=== PATIENT | female | born 1935 | race Caucasian/White ===

== ENCOUNTER 2017-11-12 22:54 | Inpatient (IN) | payer MEDICARE ==
[2017-11-12] MEDS ORDERED: fentaNYL (PF) 50 MCG/ML 2 ML AMP IV STA (23:12)
[2017-11-12 23:59] LABS: Basophils % (A) 0 %; Eosinophils % (A) 0 %; HCT 35.4 % (34.0-46.0); HGB 11.6 gm/dL (11.4-16.0); Lymphocytes # (A) 0.6 k/uL (1.0-4.8); Lymphocytes % (A) 5 %; MCH 29.7 pg (25.0-35.0); MCHC 32.8 g/dL (31.0-37.0); MCV 90.4 fL (80.0-100.0); Mean Platelet Volume 7.2; Monocytes # (A) 0.9 k/uL (0-1.0); Monocytes % (A) 8 %; Neutrophils # (A) 9.6 k/uL (1.3-7.7); Neutrophils % (A) 86 %; Platelet Count 265 k/uL (150-450); RBC 3.92 m/uL (3.80-5.40); RDW 13.7 % (11.5-15.5); WBC 11.2 k/uL (3.8-10.6)
--- NOTE | 2017-11-13 00:07 | XR ---
EXAMINATION TYPE: XR femur RT DATE OF EXAM: 11/12/2017 COMPARISON: NONE HISTORY: Fell tonight. Pain. TECHNIQUE: 4 views FINDINGS: There is intertrochanteric fracture right femur with mild coxa vera deformity. There is no dislocation. 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 IMPRESSION: Acute intertrochanteric fracture right femur.
--- NOTE | 2017-11-13 00:07 | XR ---
EXAMINATION TYPE: XR pelvis AP view DATE OF EXAM: 11/12/2017 COMPARISON: NONE HISTORY: Fell tonight. Pain. TECHNIQUE: Single view FINDINGS: Pelvic ring is intact. Hip joint spaces are normal. Sacroiliac joints are intact. IMPRESSION: No pelvic fracture seen.
--- NOTE | 2017-11-13 00:09 | XR ---
EXAMINATION TYPE: XR chest 1V portable DATE OF EXAM: 11/12/2017 COMPARISON: NONE HISTORY: Fall. Pain. TECHNIQUE: Single frontal view of the chest is obtained. 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 There is no heart failure nor confluent pneumonic infiltra te. Costophrenic angles are clear. IMPRESSION: Atheromatous aorta. No active cardiopulmonary disease.
[2017-11-13 00:12] LABS: ALT 33 U/L (9-52); AST 28 U/L (14-36); Albumin 3.9 g/dL (3.5-5.0); Alkaline Phosphatase 105 U/L (38-126); Anion Gap 13 mmol/L; Blood Urea Nitrogen 13 mg/dL (7-17); Calcium 8.9 mg/dL (8.4-10.2); Carbon Dioxide 24 mmol/L (22-30); Chloride 106 mmol/L (98-107); Glucose 166 mg/dL (74-99); Magnesium 1.8 mg/dL (1.6-2.3); Potassium 4.1 mmol/L (3.5-5.1); Sodium 143 mmol/L (137-145); Total Bilirubin 0.6 mg/dL (0.2-1.3); Total Protein 6.5 g/dL (6.3-8.2)
[2017-11-13 00:29] LABS: Creatine Kinase 217 U/L (30-135)
[2017-11-13 00:42] LABS: Creatine Kinase MB 2.3 ng/mL (0.0-2.4); Troponin I <0.012 ng/mL (0.000-0.034)
--- NOTE | 2017-11-13 00:42 | ED ---
Fall HPI - General Chief Complaint: Fall Stated Complaint: FALL Time Seen by Provider: 11/12/17 23:00 Source: patient, EMS Mode of arrival: EMS - History of Present Illness Initial Comments: This 82-year-old female who is brought in by EMS because of a fall. She states around 2:30 this afternoon she tripped over a hose and fell landing on her right hip. She try to get up but could not get up because of hip pain. She laid there all day until evening was someone prior to calling for help. She was finally brought into the emergency department by EMS. She was given morphine IV push by paramedics with some relief for pain it was 5/5. She denies any other injuries fevers chills nausea vomiting sweats or other symptoms. MD Complaint: fall Review of Systems ROS Statement: Those systems with pertinent positive or pertinent negative responses have been documented in the HPI. ROS Other: All systems not noted in ROS Statement are negative. Past Medical History Past Medical History: No Reported History History of Any Multi-Drug Resistant Organisms: None Reported Past Surgical History: Section, Tonsillectomy Past Psychological History: No Psychological Hx Reported Smoking Status: Current every day smoker Past Alcohol Use History: None Reported Past Drug Use History: None Reported General Exam - General Exam Comments Initial Comments: This is a well-developed well-nourished awake alert oriented 3 female she has a Demetrio Coma Scale of 15 the patient was brought in on a backboard with c- collar this was clinically cleared by me. The collar and board were removed General appearance: alert, anxious, in distress Head exam: Present: atraumatic, normocephalic, normal inspection Eye exam: Present: normal appearance, PERRL, EOMI. Absent: scleral icterus, conjunctival injection, periorbital swelling ENT exam: Present: mucous membranes dry Neck exam: Present: normal inspection. Absent: tenderness, meningismus, lymphadenopathy Respiratory exam: Present: normal lung sounds bilaterally. Absent: respiratory distress, wheezes, rales, rhonchi, stridor Cardiovascular Exam: Present: regular rate, normal rhythm, normal heart sounds. Absent: systolic murmur, diastolic murmur, rubs, gallop, clicks GI/Abdominal exam: Present: soft, normal bowel sounds. Absent: distended, tenderness, guarding, rebound, rigid Rectal exam: Present: deferred Extremities exam: Present: tenderness, normal capillary refill, other (The right lower extremity shortened and rotated with tenderness palpation over the right hip consistent with a fracture.). Absent: full ROM, pedal edema, joint swelling, calf tenderness Back exam: Present: normal inspection Neurological exam: Present: alert, oriented X3, CN II-XII intact Psychiatric exam: Present: normal affect, normal mood Skin exam: Present: warm, dry, intact, normal color. Absent: rash Course Vital Signs 11/12/17 23:02 Temperature 100.8 F H Pulse Rate 102 H Respiratory 16 Rate Blood Pressure 158/73 O2 Sat by Pulse 98 Oximetry - Reevaluation(s) Reevaluation #1: 11/13/17 00:43 The patient is elevated temperature is likely on the basis of her lying outside in the 80s plus degree weather all afternoon. Medical Decision Making - Medical Decision Making I did discuss findings with patient family members. Patient be admitted the case will be discussed with Dr. Lindsey Manning will be consulted for medical clearance - Lab Data Result diagrams: 11/12/17 23:22 11/12/17 23:22 Lab Results 11/12/17 11/12/17 11/12/17 Range/Units 23:22 23:22 23:22 WBC 11.2 H (3.8-10.6) k/uL RBC 3.92 (3.80-5.40) m/uL Hgb 11.6 (11.4-16.0) gm/dL Hct 35.4 (34.0-46.0) % MCV 90.4 (80.0-100.0) fL MCH 29.7 (25.0-35.0) pg MCHC 32.8 (31.0-37.0) g/dL RDW 13.7 (11.5-15.5) % Plt Count 265 (150-450) k/uL Neutrophils % 86 % Lymphocytes % 5 % Monocytes % 8 % Eosinophils % 0 % Basophils % 0 % Neutrophils # 9.6 H (1.3-7.7) k/uL Lymphocytes # 0.6 L (1.0-4.8) k/uL Monocytes # 0.9 (0-1.0) k/uL Eosinophils # 0.0 (0-0.7) k/uL Basophils # 0.0 (0-0.2) k/uL APTT 19.8 L (22.0-30.0) sec Sodium (137-145) mmol/L Potassium (3.5-5.1) mmol/L Chloride (98-107) mmol/L Carbon Dioxide (22-30) mmol/L Anion Gap mmol/L BUN (7-17) mg/dL Creatinine (0.52-1.04) mg/dL Est GFR (CKD-EPI)AfAm (>60 ml/min/1.73 sqM) Est GFR (CKD-EPI)NonAf (>60 ml/min/1.73 sqM) Glucose (74-99) mg/dL Calcium (8.4-10.2) mg/dL Magnesium (1.6-2.3) mg/dL Total Bilirubin (0.2-1.3) mg/dL AST (14-36) U/L ALT (9-52) U/L Alkaline Phosphatase (38-126) U/L NT-Pro-B Natriuret Pep 264 pg/mL Total Protein (6.3-8.2) g/dL Albumin (3.5-5.0) g/dL 11/12/17 Range/Units 23:22 WBC (3.8-10.6) k/uL RBC (3.80-5.40) m/uL Hgb (11.4-16.0) gm/dL Hct (34.0-46.0) % MCV (80.0-100.0) fL MCH (25.0-35.0) pg MCHC (31.0-37.0) g/dL RDW (11.5-15.5) % Plt Count (150-450) k/uL Neutrophils % % Lymphocytes % % Monocytes % % Eosinophils % % Basophils % % Neutrophils # (1.3-7.7) k/uL Lymphocytes # (1.0-4.8) k/uL Monocytes # (0-1.0) k/uL Eosinophils # (0-0.7) k/uL Basophils # (0-0.2) k/uL APTT (22.0-30.0) sec Sodium 143 (137-145) mmol/L Potassium 4.1 (3.5-5.1) mmol/L Chloride 106 (98-107) mmol/L Carbon Dioxide 24 (22-30) mmol/L Anion Gap 13 mmol/L BUN 13 (7-17) mg/dL Creatinine 0.50 L (0.52-1.04) mg/dL Est GFR (CKD-EPI)AfAm >90 (>60 ml/min/1.73 sqM) Est GFR (CKD-EPI)NonAf 90 (>60 ml/min/1.73 sqM) Glucose 166 H (74-99) mg/dL Calcium 8.9 (8.4-10.2) mg/dL Magnesium 1.8 (1.6-2.3) mg/dL Total Bilirubin 0.6 (0.2-1.3) mg/dL AST 28 (14-36) U/L ALT 33 (9-52) U/L Alkaline Phosphatase 105 (38-126) U/L NT-Pro-B Natriuret Pep pg/mL Total Protein 6.5 (6.3-8.2) g/dL Albumin 3.9 (3.5-5.0) g/dL - EKG Data -: EKG Interpreted by Me EKG shows normal: sinus rhythm (Sinus rhythm rate 91 appear interval 144 QRS duration 72 QT since QTC of 384/[address]-T wave changes) - Radiology Data Radiology results: report reviewed (I did review the imaging there is an intertrochanteric fracture on the right. No other findings), image reviewed Disposition Clinical Impression: Fall, Closed right hip fracture, Dehydration Disposition: ADMITTED IP TO THIS [facility] Condition: Stable Referrals: Valerie Huitron MD [Primary Care Provider] - 1-2 days
[2017-11-13] MEDS ORDERED: NALOXONE 0.4 MG/ML 1 ML VIAL IV PRN (00:44)
[2017-11-13] MEDS: SODIUM CHLORIDE 0.9% 1,000 ML IV SCH ×3 (00:50→16:49)
[2017-11-13 00:57] LABS: Appearance,Urine Clear (Clear); Bilirubin,Urine Negative (Negative); Blood,Urine Negative (Negative); Color,Urine Yellow; Glucose,Urine (UA) Negative (Negative); Ketones,Urine Negative (Negative); Leukocyte Esterase,Urine Negative (Negative); Nitrite,Urine Negative (Negative); Protein,Urine Trace (Negative); Specific Gravity,Urine 1.019 (1.001-1.035); Urobilinogen,Urine <2.0 mg/dL (<2.0)
[2017-11-13] MEDS ORDERED: HYDROmorphone 0.5 MG/0.5 ML SYRINGE ONE (01:40)
[2017-11-13 08:32] VITALS: BMI 22.8
--- NOTE | 2017-11-13 09:03 | P.HPOR ---
History of Present Illness H&P Date: 11/13/17 Chief Complaint: Right hip fracture This is an 82-year-old female who presented to the emergency department after tripping over the hose in her yard and sustaining injury to her right hip. She was transferred to [facility] from [place]. X-rays revealed an intertrochanteric fracture of the right hip. She is admitted to our service for surgical intervention and care. Past Medical History Past Medical History: No Reported History History of Any Multi-Drug Resistant Organisms: None Reported Past Surgical History: Tonsillectomy Past Psychological History: No Psychological Hx Reported Smoking Status: Never smoker Past Alcohol Use History: None Reported Past Drug Use History: None Reported Medications and Allergies Home Medications Medication Instructions Recorded Confirmed Type Calcium Carbonate/Vitamin D3 1 tab PO DAILY 11/13/17 11/13/17 History [Calcium 600-Vit D3 200 Tablet] Multivit-Min/Iron/Folic/Lutein 1 tab PO DAILY 11/13/17 11/13/17 History [Centrum Silver Women Tablet] Allergies Allergy/AdvReac Type Severity Reaction Status Date / Time FLU VACCINE Allergy Unknown Uncoded 11/13/17 08:05 Physical Examination This is a pleasant 82-year-old female in no acute distress. She is alert and oriented 3. Exam of the head neck reveal no obvious deformity. She has full cervical spine motion without difficulty or pain. Exam the upper extremities unremarkable. She has full shoulder, elbow, wrist and finger motion bilaterally. No deformities or swelling noted. Neurovascular status the upper extremities is intact. Exam of the lower extremities reveals no obvious deformity. There is pain with motion of the right hip. She does have a right knee effusion. There is no pain to the right knee with palpation. She has full foot ankle motion bilaterally. Neurovascular status to the lower extremities is intact. Results x-rays of the pelvis and right femur reveal a minimally displaced intertrochanteric fracture of the right hip. There are no obvious fractures at the distal femur or knee. Suboptimal x-rays of the knee area. - Labs Labs: Abnormal Lab Results - Last 24 Hours (Table) 11/12/17 11/12/17 11/12/17 Range/Units 23:22 23:22 23:22 WBC 11.2 H (3.8-10.6) k/uL Neutrophils # 9.6 H (1.3-7.7) k/uL Lymphocytes # 0.6 L (1.0-4.8) k/uL APTT 19.8 L (22.0-30.0) sec Creatinine (0.52-1.04) mg/dL Glucose (74-99) mg/dL Total Creatine Kinase 217 H (30-135) U/L Urine Protein (Negative) 11/12/17 11/13/17 Range/Units 23:22 00:46 WBC (3.8-10.6) k/uL Neutrophils # (1.3-7.7) k/uL Lymphocytes # (1.0-4.8) k/uL APTT (22.0-30.0) sec Creatinine 0.50 L (0.52-1.04) mg/dL Glucose 166 H (74-99) mg/dL Total Creatine Kinase (30-135) U/L Urine Protein Trace H (Negative) H & H 11/12/17 Range/Units 23:22 Hgb 11.6 (11.4-16.0) gm/dL Hct 35.4 (34.0-46.0) % Result Diagrams: 11/12/17 23:22 11/12/17 23:22 Assessment and Plan (1) Effusion, right knee Current Visit: Yes Status: Acute Code(s): M25.461 - EFFUSION, RIGHT KNEE SNOMED Code(s): 724655565 (2) Closed right hip fracture Current Visit: Yes Status: Acute Code(s): S72.001A - FRACTURE OF UNSP PART OF NECK OF RIGHT FEMUR, INIT SNOMED Code(s): 881023046 (3) Fall Current Visit: Yes Status: Acute Code(s): W19.XXXA - UNSPECIFIED FALL, INITIAL ENCOUNTER SNOMED Code(s): 5800440 Plan: The clinical and x-ray findings are discussed with the patient and her daughter. It is recommended that she undergo closed reduction with insertion of intertrochanteric nail the right hip. The procedure has been discussed in detail including the possible risks and outcomes of surgery. I dispensed need for inpatient rehab postoperatively. I've ordered x-rays of the right knee for further evaluation.
[2017-11-13 09:31] LABS: Basophils % (A) 0 %; Eosinophils % (A) 0 %; HCT 31.7 % (34.0-46.0); HGB 10.3 gm/dL (11.4-16.0); Lymphocytes # (A) 1.3 k/uL (1.0-4.8); Lymphocytes % (A) 20 %; MCH 29.4 pg (25.0-35.0); MCHC 32.4 g/dL (31.0-37.0); MCV 90.6 fL (80.0-100.0); Monocytes # (A) 0.9 k/uL (0-1.0); Monocytes % (A) 14 %; Neutrophils # (A) 4.1 k/uL (1.3-7.7); Neutrophils % (A) 63 %; Platelet Count 240 k/uL (150-450); RDW 13.7 % (11.5-15.5); WBC 6.5 k/uL (3.8-10.6)
[2017-11-13 10:03] LABS: ALT 27 U/L (9-52); AST 22 U/L (14-36); Albumin 3.3 g/dL (3.5-5.0); Alkaline Phosphatase 79 U/L (38-126); Anion Gap 7 mmol/L; Blood Urea Nitrogen 11 mg/dL (7-17); Calcium 8.4 mg/dL (8.4-10.2); Carbon Dioxide 27 mmol/L (22-30); Chloride 107 mmol/L (98-107); Glucose 104 mg/dL (74-99); Potassium 3.8 mmol/L (3.5-5.1); Sodium 141 mmol/L (137-145); Total Bilirubin 0.8 mg/dL (0.2-1.3); Total Protein 5.7 g/dL (6.3-8.2)
[2017-11-13] MEDS: HEPARIN SODIUM,PORCINE 5,000 UNIT/ML 1 ML VIAL SQ SCH ×2 (11:38→20:48)
[2017-11-13] MEDS: HYDROmorphone 0.5 MG/0.5 ML SYRINGE IVP PRN ×2 (11:38→17:37)
--- NOTE | 2017-11-13 15:17 | P.CONS ---
History of Present Illness - Reason for Consult Consult date: 11/13/17 Medical management Requesting physician: Rupert Portillo - Chief Complaint Fall with right hip fracture - History of Present Illness This is a 82-year-old female, patient of Dr. Huitron. She has no significant past medical history. Patient reports that she was outside working in her yard she tripped and fell over her hose landing on her right hip. She had difficulty getting up and had to yell out to a neighbor to help her. Patient reports being outside for about 7 hours before she was able to get assistance. X-ray did show evidence of a right femur fracture. She was admitted to the orthopedics. And is planning to have surgery tomorrow. Patient is medically stable for surgery. EKG normal sinus rhythm. Chest x-ray showing no acute pulmonary process. She did have a low-grade temp of 100.8 and white count of 11.2. This is likely related to her fracture or other temp could be elevated due to her being outside in the heat. Urinalysis is negative. There is no evidence of any acute infection. She denies any history of congestive heart failure, myocardial infarction, stroke, diabetes, renal disease. Patient denies any chest pain or shortness of breath. Denies any fever chills or sweats. Denies any nausea or vomiting. Denies any bowel movement changes or urinary symptoms. Review of Systems Please refer to HPI otherwise unremarkable Past Medical History Past Medical History: No Reported History Additional Past Medical History / Comment(s): Prior history of a spot on her lung about 10 years ago. Patient reports last chest x-ray that was several years ago did not reveal any lung spot. No further workup was needed per patient History of Any Multi-Drug Resistant Organisms: None Reported Past Surgical History: Tonsillectomy Past Psychological History: No Psychological Hx Reported Smoking Status: Never smoker Past Alcohol Use History: None Reported Past Drug Use History: None Reported Medications and Allergies Home Medications Medication Instructions Recorded Confirmed Type Calcium Carbonate/Vitamin D3 1 tab PO DAILY 11/13/17 11/13/17 History [Calcium 600-Vit D3 200 Tablet] Multivit-Min/Iron/Folic/Lutein 1 tab PO DAILY 11/13/17 11/13/17 History [Centrum Silver Women Tablet] Allergies Allergy/AdvReac Type Severity Reaction Status Date / Time FLU VACCINE Allergy Unknown Uncoded 11/13/17 08:05 Physical Exam Vitals: Vital Signs Temp Pulse Pulse Resp BP BP Pulse Ox 11/13/17 14:52 98.6 F 94 16 146/69 95 11/13/17 08:23 98.8 F 96 20 126/59 98 11/13/17 01:15 98.8 F 89 16 98 11/13/17 00:59 98.8 F 11/13/17 00:49 95 18 135/60 99 11/12/17 23:02 100.8 F H 102 H 16 158/73 98 Intake and Output 11/13/17 11/13/17 11/13/17 06:59 14:59 22:59 Output Total 400 Balance -400 Output: Urine 400 Other: Voiding Method Indwelling Catheter Indwelling Catheter Weight 58.06 kg 56.699 kg Head normocephalic Neck supple Lungs clear to auscultation bilaterally no wheezing or crackles Heart regular rate and rhythm S1-S2, no rub or gallop Abdomen is soft nontender nondistended positive bowel sounds no hepatosplenomegaly Extremities no edema Neuro alert and orientated to 3 Skin bruising on left hip Results CBC & Chem 7: 11/13/17 09:06 11/13/17 09:06 Labs: Abnormal Lab Results - Last 24 Hours (Table) 11/12/17 11/12/17 11/12/17 Range/Units 23:22 23:22 23:22 WBC 11.2 H (3.8-10.6) k/uL RBC (3.80-5.40) m/uL Hgb (11.4-16.0) gm/dL Hct (34.0-46.0) % Neutrophils # 9.6 H (1.3-7.7) k/uL Lymphocytes # 0.6 L (1.0-4.8) k/uL APTT 19.8 L (22.0-30.0) sec Creatinine (0.52-1.04) mg/dL Glucose (74-99) mg/dL Total Creatine Kinase 217 H (30-135) U/L Total Protein (6.3-8.2) g/dL Albumin (3.5-5.0) g/dL Urine Protein (Negative) 11/12/17 11/13/17 11/13/17 Range/Units 23:22 00:46 09:06 WBC (3.8-10.6) k/uL RBC 3.50 L (3.80-5.40) m/uL Hgb 10.3 L (11.4-16.0) gm/dL Hct 31.7 L (34.0-46.0) % Neutrophils # (1.3-7.7) k/uL Lymphocytes # (1.0-4.8) k/uL APTT (22.0-30.0) sec Creatinine 0.50 L (0.52-1.04) mg/dL Glucose 166 H (74-99) mg/dL Total Creatine Kinase (30-135) U/L Total Protein (6.3-8.2) g/dL Albumin (3.5-5.0) g/dL Urine Protein Trace H (Negative) 11/13/17 Range/Units 09:06 WBC (3.8-10.6) k/uL RBC (3.80-5.40) m/uL Hgb (11.4-16.0) gm/dL Hct (34.0-46.0) % Neutrophils # (1.3-7.7) k/uL Lymphocytes # (1.0-4.8) k/uL APTT (22.0-30.0) sec Creatinine (0.52-1.04) mg/dL Glucose 104 H (74-99) mg/dL Total Creatine Kinase (30-135) U/L Total Protein 5.7 L (6.3-8.2) g/dL Albumin 3.3 L (3.5-5.0) g/dL Urine Protein (Negative) Assessment and Plan Assessment: 1. Right hip fracture: Patient is scheduled for surgical procedure tomorrow. Patient is medically stable to proceed with surgery. Patient is at low to moderate risk for surgery only due to her age. 2. Mechanical fall with hip fracture DVT prophylaxis subcu heparin Thank you for this consultation. We will continue to follow along during patient's hospitalization. Time with Patient: Greater than 30 (Greater than 60% of the total time spent in counseling and coordination of care.I performed an examination of the patient and discussed their management with the physician Cable Tender. I have reviewed the Physician Cable Tender's notes and agree with the documented findings and plan of care)
--- NOTE | 2017-11-13 15:46 | XR ---
EXAMINATION TYPE: XR knee complete RT DATE OF EXAM: 11/13/2017 COMPARISON: NONE HISTORY: Fall, pain TECHNIQUE: Three-view right knee FINDINGS: Medial lateral tibial plateau spurring is present. Some medial femoral condylar spurring is present. Moderate joint effusion is present. Anterior superior patellar spur is present. Posterior p atellar spurring superiorly and inferiorly are present. Some narrowing of the patellofemoral joint sp guero is present. IMPRESSION: 1. Moderate degenerative changes right knee. 2. No acute fractures evident. 3. Moderate joint effusion is present.
[2017-11-14] MEDS: HYDROmorphone 0.5 MG/0.5 ML SYRINGE IVP PRN ×3 (00:29→12:44)
[2017-11-14] MEDS: SODIUM CHLORIDE 0.9% 1,000 ML IV SCH ×4 (02:05→23:57)
[2017-11-14 08:12] LABS: Basophils % (A) 0 %; Eosinophils % (A) 0 %; HCT 31.9 % (34.0-46.0); HGB 10.1 gm/dL (11.4-16.0); Lymphocytes # (A) 1.2 k/uL (1.0-4.8); Lymphocytes % (A) 15 %; MCH 29.3 pg (25.0-35.0); MCHC 31.8 g/dL (31.0-37.0); MCV 92.4 fL (80.0-100.0); Mean Platelet Volume 7.2; Monocytes # (A) 0.8 k/uL (0-1.0); Monocytes % (A) 11 %; Neutrophils # (A) 5.5 k/uL (1.3-7.7); Neutrophils % (A) 72 %; Platelet Count 210 k/uL (150-450); RBC 3.45 m/uL (3.80-5.40); RDW 13.8 % (11.5-15.5); WBC 7.6 k/uL (3.8-10.6)
[2017-11-14 08:38] LABS: ALT 26 U/L (9-52); AST 21 U/L (14-36); Alkaline Phosphatase 73 U/L (38-126); Anion Gap 7 mmol/L; Blood Urea Nitrogen 10 mg/dL (7-17); Calcium 8.1 mg/dL (8.4-10.2); Carbon Dioxide 27 mmol/L (22-30); Chloride 107 mmol/L (98-107); Glucose 98 mg/dL (74-99); Potassium 4.6 mmol/L (3.5-5.1); Sodium 141 mmol/L (137-145); Total Bilirubin 0.6 mg/dL (0.2-1.3); Total Protein 5.4 g/dL (6.3-8.2)
[2017-11-14] MEDS: HEPARIN SODIUM,PORCINE 5,000 UNIT/ML 1 ML VIAL SQ SCH (09:04)
--- NOTE | 2017-11-14 10:57 | P.PN ---
Subjective Progress Note Date: 11/14/17 This is a 82-year-old female, patient of Dr. Huitron. She has no significant past medical history. Patient reports that she was outside working in her yard she tripped and fell over her hose landing on her right hip. She had difficulty getting up and had to yell out to a neighbor to help her. Patient reports being outside for about 7 hours before she was able to get assistance. X-ray did show evidence of a right femur fracture. She was admitted to the orthopedics. And is planning to have surgery tomorrow. Patient is medically stable for surgery. EKG normal sinus rhythm. Chest x-ray showing no acute pulmonary process. She did have a low-grade temp of 100.8 and white count of 11.2. This is likely related to her fracture or other temp could be elevated due to her being outside in the heat. Urinalysis is negative. There is no evidence of any acute infection. She denies any history of congestive heart failure, myocardial infarction, stroke, diabetes, renal disease. Patient denies any chest pain or shortness of breath. Denies any fever chills or sweats. Denies any nausea or vomiting. Denies any bowel movement changes or urinary symptoms. 11/14/2017 patient scheduled for surgery today. Pain is tolerable. Hemoglobin has dropped from 10.3-10.1. Patient denies any chest pain or shortness of breath. Denies any nausea or vomiting. Has Elias catheter in place. Objective - Vital Signs Vital signs: Vital Signs Temp 98.5 F 11/14/17 07:00 Pulse 97 11/14/17 07:00 Resp 18 11/14/17 07:00 BP 153/69 11/14/17 07:00 Pulse Ox 96 11/14/17 02:22 Intake & Output 11/13/17 11/14/17 11/14/17 18:59 06:59 18:59 Intake Total 1437.5 Output Total 400 Balance -400 1437.5 Weight 56.699 kg Intake: Intake, IV Titration 1437.5 Amount Sodium Chloride 0.9% 1, 1437.5 000 ml @ 125 mls/hr IV . Q8H SURAJ Rx#:[id number] Output: Urine 400 Other: Voiding Method Indwelling Catheter Indwelling Catheter Indwelling Catheter - Exam Head normocephalic Neck supple Lungs clear to auscultation bilaterally no wheezing or crackles Heart regular rate and rhythm S1-S2, no rub or gallop Abdomen is soft nontender nondistended positive bowel sounds no hepatosplenomegaly Extremities no edema Neuro alert and orientated to 3 - Labs CBC & Chem 7: 18 06:59 18 06:59 Labs: Abnormal Lab Results - Last 24 Hours (Table) 11/14/17 11/14/17 Range/Units 06:59 06:59 RBC 3.45 L (3.80-5.40) m/uL Hgb 10.1 L (11.4-16.0) gm/dL Hct 31.9 L (34.0-46.0) % Calcium 8.1 L (8.4-10.2) mg/dL Total Protein 5.4 L (6.3-8.2) g/dL Albumin 3.0 L (3.5-5.0) g/dL Assessment and Plan Assessment: 1. Right hip fracture: Patient is scheduled for surgical procedure today. Patient is medically stable to proceed with surgery. Patient is at low to moderate risk for surgery only due to her age. 2. Mechanical fall with hip fracture 3. Anemia possibly related to patient's fracture. Check iron studies. Continue to monitor CBC DVT prophylaxis subcu heparin I performed an examination of the patient and discussed their management with the physician Surgical Nurse. I have reviewed the Physician Surgical Nurse's notes and agree with the documented findings and plan of care
[2017-11-14] MEDS ORDERED: IV FLUID CONTINUATION 1,000 ML IV ONE (13:07)
[2017-11-14] MEDS ORDERED: ceFAZolin IN SWFI 2 GM/20 ML SYRINGE IVP ONE (14:30)
[2017-11-14] MEDS ORDERED: ceFAZolin 1,000 MG in SODIUM CHLORIDE 0.9% 1,000 ML IRRIGATION ONE (15:30)
[2017-11-14] MEDS ORDERED: LACTATED RINGERS 1,000 ML IV ONE (15:47)
[2017-11-14] MEDS ORDERED: methylPREDNISolone ACETATE 80 MG/ML 1 ML VIAL INJ ONE (16:00)
[2017-11-14] MEDS ORDERED: LIDOCAINE 1% (PF) 10MG/ML VIAL SQ ONE (16:00)
--- NOTE | 2017-11-14 16:18 | FL ---
EXAMINATION TYPE: FL guidance operating room, XR Hip Limited RT DATE OF EXAM: 11/14/2017 CLINICAL HISTORY: Right hip fracture. TECHNIQUE: Fluoroscopy. Limited intraoperative views right hip. COMPARISON: Pelvic and right femur x-ray from 2 days earlier.. FINDINGS: Fluoroscopic guidance was provided during open reduction internal fixation procedure perfo rmed by Dr. Portillo. A total of 38 seconds of fluoroscopic time was utilized during the procedure and single spot images was acquired. Single image acquired shows partial visualization of metallic hardware from right positioning with in tramedullary jessica and large femoral neck fixating screw and small transverse distal fixating screw thr ough subtrochanteric fracture right proximal femur. AP image is not sent to PACS at time of dictation . IMPRESSION: As Above.
[2017-11-14] MEDS ORDERED: HYDROcodone/APAP 5-325MG 1 EACH TAB PO PRN (16:20)
[2017-11-14] MEDS ORDERED: ONDANSETRON 4 MG/2 ML VIAL IVP PRN (16:20)
[2017-11-14] MEDS ORDERED: HYDROmorphone 0.5 MG/0.5 ML SYRINGE IVP PRN ×3 (16:20)
[2017-11-14] MEDS ORDERED: MAGNESIUM HYDROXIDE 2,400 MG/10 ML CUP PO PRN (16:20)
[2017-11-14] MEDS ORDERED: NALOXONE 0.4 MG/ML 1 ML VIAL IV PRN (16:20)
--- NOTE | 2017-11-14 16:21 | P.OP ---
Date of Procedure: 11/14/17 Procedure(s) Performed: PREOPERATIVE DIAGNOSIS: Right hip intertrochanteric fracture. POSTOPERATIVE DIAGNOSIS: Right hip intertrochanteric fracture. OPERATION: Right hip intertrochanteric fracture closed reduction and intramedullary nailing using Synthes IT nail. LINING IRONER: Ro Israel (Assistance with: Patient positioning, retraction, exposure, hemostasis, fixation, irrigation, closure, dressing) ANESTHESIA: Spinal ESTIMATED BLOOD LOSS: 50 mL. COMPLICATIONS: None OPERATIVE FINDINGS: See dictation INDICATIONS: Mrs. Goodson is an 82-year-old female with a history of right intertrochanteric fracture. The patient presents to the operating room today for closed reduction and intramedullary nailing. I discussed the risks of surgery in detail as being inclusive of but not limited to: Bleeding, infection , scarring, discomfort, blood vessel and/or nerve damage, need for further surgery, malunion, nonunion, gait disturbance including persistent or permanent limp, limb length inequality, arthritis, hardware failure, blood clot, pulmonary embolism, , and other risks. The consent form has been signed. PROCEDURE: After appropriate consent was obtained, the patient was taken to the operating room and placed in supine position. Spinal anesthetic was administered and after confirmation of adequate anesthesia, the patient was carefully placed in the supine position on the operating room table in the fracture table. The patient was placed up against a well-padded peroneal post. Care was taken to make sure about that all pressure points were adequately padded. The affected leg was placed in boot traction and the unaffected leg was placed in a well leg jonas. Using gentle longitudinal distraction as well as adduction and internal rotation , the fracture was reduced as assessed by AP and lateral C-arm imaging. Once a satisfactory reduction had been obtained, the thigh was prepped and draped in the usual aseptic fashion using ChloraPrep. Ioban drape was used for the case and the patient received intravenous antibiotics prior to incision. Timeout was called, confirming patient identity, side, procedure, and administration of antibiotics. The incision was then created with a #10 blade just proximal to the greater trochanter laterally. It was carried down through skin into the subcutaneous tissues and through fascia. Hemostasis was obtained using electrocautery. The tip of the greater trochanter was palpated and a guide pin was placed at the tip and directed into the femoral shaft as assessed with C-arm imaging. Once optimal pin position had been obtained, a 17 mm reamer was used over the guide pin to create a path for the IT nail. IT nail selected was assembled to the insertion jig on the back table and bushings were checked for accuracy. The nail was then inserted using gentle mallet taps until it was fully deployed. The amount of rotation of the implant was assessed based on the amount of anteversion of the femoral neck. This was rotated to match the patient's femoral neck anteversion and the helical blade guide was placed through the insertion jig and through an incision on the lateral side of the thigh more distal than the first. Once this guide was placed against the lateral cortex of the femur, a guide pin was drilled into the central region of the femoral head and neck as based on AP and lateral C-arm imaging. Once optimal pin position had been obtained, the guidewire was measured and appropriately sized helical blade was selected. The path for the helical blade was prepared using a tapered reamer. The helical blade was then inserted using gentle mallet taps along the guidewire until it was fully deployed. There was no displacement of the fracture during this step. The anti-rotation screw was locked down and the insertion apparatus for the helical blade was removed. The guide pin was then removed. Traction was then removed from the leg and the distal interlock was placed through the jig using standard technique. Finally, the insertion jig for the nail was removed and final C-arm images were taken and saved in both AP and lateral planes. The final x-rays showed satisfactory positioning of the implant and good reduction of the fracture. The top of the nail was plugged with a small quantity of bone wax and the incisions were then thoroughly irrigated with normal saline. Final hemostasis was obtained using electrocautery and closure of the fascia was performed using 0-Vicryl suture. 2-0 Vicryl suture was used in the subcutaneous tissues and standard skin closure was performed. Sterile dressing was then applied and the patient was carefully removed from the fracture table frame and placed onto the stretcher. The patient tolerated the procedure well. There were no complications and above noted blood loss. The patient was then subsequently transferred to recovery room in stable condition. Sponge and needle counts were correct.
[2017-11-14 16:57] LABS: Iron Saturation 20.54 (12.00-45.00)
[2017-11-14] MEDS ORDERED: WARFARIN 2.5 MG TAB PO ONE (18:00)
[2017-11-14 18:45] LABS: Basophils % (A) 0 %; Eosinophils % (A) 0 %; HCT 35.6 % (34.0-46.0); HGB 11.2 gm/dL (11.4-16.0); Lymphocytes % (A) 6 %; MCH 29.4 pg (25.0-35.0); MCHC 31.5 g/dL (31.0-37.0); MCV 93.3 fL (80.0-100.0); Mean Platelet Volume 7.2; Monocytes % (A) 6 %; Neutrophils # (A) 14.2 k/uL (1.3-7.7); Neutrophils % (A) 87 %; Platelet Count 213 k/uL (150-450); RBC 3.82 m/uL (3.80-5.40); RDW 13.6 % (11.5-15.5); WBC 16.3 k/uL (3.8-10.6)
[2017-11-14] MEDS: LACTATED RINGERS 1,000 ML IV SCH (19:47)
[2017-11-14] MEDS: SENNOSIDES-DOCUSATE SODIUM 1 EACH TAB PO SCH (21:05)
[2017-11-15] MEDS: HYDROcodone/APAP 5-325MG 1 EACH TAB PO PRN ×3 (00:19→13:55)
[2017-11-15] MEDS: LACTATED RINGERS 1,000 ML IV SCH ×2 (05:37→18:11)
[2017-11-15 08:09] LABS: Basophils % (A) 0 %; Eosinophils % (A) 0 %; HCT 30.6 % (34.0-46.0); Lymphocytes # (A) 0.8 k/uL (1.0-4.8); Lymphocytes % (A) 12 %; MCH 29.3 pg (25.0-35.0); MCHC 31.8 g/dL (31.0-37.0); MCV 92.1 fL (80.0-100.0); Mean Platelet Volume 7.4; Monocytes # (A) 0.7 k/uL (0-1.0); Monocytes % (A) 10 %; Neutrophils # (A) 5.3 k/uL (1.3-7.7); Neutrophils % (A) 77 %; Platelet Count 214 k/uL (150-450); RBC 3.32 m/uL (3.80-5.40); RDW 13.4 % (11.5-15.5); WBC 6.9 k/uL (3.8-10.6)
[2017-11-15 08:15] LABS: ALT 26 U/L (9-52); AST 25 U/L (14-36); Albumin 2.8 g/dL (3.5-5.0); Alkaline Phosphatase 63 U/L (38-126); Anion Gap 10 mmol/L; Blood Urea Nitrogen 10 mg/dL (7-17); Calcium 8.5 mg/dL (8.4-10.2); Carbon Dioxide 26 mmol/L (22-30); Chloride 104 mmol/L (98-107); Glucose 128 mg/dL (74-99); Potassium 4.8 mmol/L (3.5-5.1); Sodium 140 mmol/L (137-145); Total Bilirubin 0.7 mg/dL (0.2-1.3); Total Protein 5.3 g/dL (6.3-8.2)
[2017-11-15 08:18] LABS: HGB 9.7 gm/dL (11.4-16.0)
[2017-11-15 11:39] LABS: INR 1.2 (<1.2); Prothrombin Time 11.1 sec (9.0-12.0)
[2017-11-15] MEDS: SODIUM CHLORIDE 0.9% 1,000 ML IV SCH ×2 (11:40→18:12)
--- NOTE | 2017-11-15 12:10 | P.PN ---
Subjective Progress Note Date: 11/15/17 Principal diagnosis: Right IT FX Patient is seen at bedside this morning. She is postop day #1 from closed reduction internal fixation with IT nail for right hip fracture. She has pain at the surgical site as expected but denies any new complaints. She denies numbness, tingling or calf pain. Review of systems is negative for fever, chills, chest pain, shortness of breath or other Objective - Vital Signs Vital signs: Vital Signs Temp 98.3 F 11/15/17 02:47 Pulse 102 H 11/15/17 02:47 Resp 16 11/15/17 02:47 BP 118/64 11/15/17 02:47 Pulse Ox 99 11/15/17 02:47 Intake & Output 11/14/17 11/15/17 11/15/17 18:59 06:59 18:59 Intake Total 1537 1700 Output Total 1700 1075 Balance -163 625 Intake: IV 1300 Sodium Chloride 0.9% 1, 650 000 ml @ 125 mls/hr IV . Q8H SURAJ Rx#:[id number] Intake, IV Titration 1600 Amount Lactated Ringers 1,000 ml 1600 @ 100 mls/hr IV .Q10H SURAJ Rx#:[id number] Oral 237 Other 100 Output: Urine 1650 1075 Estimated Blood Loss 50 Other: Voiding Method Indwelling Catheter Indwelling Catheter Indwelling Catheter - Exam Inspection reveals a benign surgical wound. There is no active bleeding or drainage. Neurovascular status is intact throughout the lower extremity with motor and sensation fully intact. Calf is soft and nontender. 2+ dorsalis pedis pulse and less than 2 second cap refill is present - Constitutional General appearance: Present: no acute distress - Labs CBC & Chem 7: 11/15/17 06:26 11/15/17 06:26 Labs: Abnormal Lab Results - Last 24 Hours (Table) 11/14/17 11/15/17 11/15/17 Range/Units 18:20 06:26 06:26 WBC 16.3 H (3.8-10.6) k/uL RBC 3.32 L (3.80-5.40) m/uL Hgb 11.2 L 9.7 L D (11.4-16.0) gm/dL Hct 30.6 L (34.0-46.0) % Neutrophils # 14.2 H (1.3-7.7) k/uL Lymphocytes # 0.8 L (1.0-4.8) k/uL INR (<1.2) Glucose 128 H (74-99) mg/dL Total Protein 5.3 L (6.3-8.2) g/dL Albumin 2.8 L (3.5-5.0) g/dL 11/15/17 Range/Units 10:56 WBC (3.8-10.6) k/uL RBC (3.80-5.40) m/uL Hgb (11.4-16.0) gm/dL Hct (34.0-46.0) % Neutrophils # (1.3-7.7) k/uL Lymphocytes # (1.0-4.8) k/uL INR 1.2 H (<1.2) Glucose (74-99) mg/dL Total Protein (6.3-8.2) g/dL Albumin (3.5-5.0) g/dL Assessment and Plan (1) Closed right hip fracture Narrative/Plan: She will continue with routine postop orthopedic protocol including pain management, wound care, physical therapy, DVT prophylaxis and medical management. Expect that she will transfer to rehab in next few days. Current Visit: Yes Status: Acute Priority: Medium Code(s): S72.001A - FRACTURE OF UNSP PART OF NECK OF RIGHT FEMUR, INIT SNOMED Code(s): 050597543 Time with Patient: Less than 30
--- NOTE | 2017-11-15 14:40 | P.PN ---
Subjective Progress Note Date: 11/15/17 This is a 82-year-old female, patient of Dr. Huitron. She has no significant past medical history. Patient reports that she was outside working in her yard she tripped and fell over her hose landing on her right hip. She had difficulty getting up and had to yell out to a neighbor to help her. Patient reports being outside for about 7 hours before she was able to get assistance. X-ray did show evidence of a right femur fracture. She was admitted to the orthopedics. And is planning to have surgery tomorrow. Patient is medically stable for surgery. EKG normal sinus rhythm. Chest x-ray showing no acute pulmonary process. She did have a low-grade temp of 100.8 and white count of 11.2. This is likely related to her fracture or other temp could be elevated due to her being outside in the heat. Urinalysis is negative. There is no evidence of any acute infection. She denies any history of congestive heart failure, myocardial infarction, stroke, diabetes, renal disease. Patient denies any chest pain or shortness of breath. Denies any fever chills or sweats. Denies any nausea or vomiting. Denies any bowel movement changes or urinary symptoms. 11/14/2017 patient scheduled for surgery today. Pain is tolerable. Hemoglobin has dropped from 10.3-10.1. Patient denies any chest pain or shortness of breath. Denies any nausea or vomiting. Has Elias catheter in place. 11/15/2017 patient is alert and oriented 3 in no apparent distress she underwent surgery without complication, pain is well-controlled, there is no fever or chills no chest pain or shortness of breath no cough, she is tolerating diet well without nausea. There is no vomiting no abdominal pain and no urinary symptoms Objective - Vital Signs Vital signs: Vital Signs Temp 98.3 F 11/15/17 02:47 Pulse 102 H 11/15/17 02:47 Resp 16 11/15/17 02:47 BP 118/64 11/15/17 02:47 Pulse Ox 99 11/15/17 02:47 Intake & Output 11/14/17 11/15/17 11/15/17 18:59 06:59 18:59 Intake Total 1537 1700 240 Output Total 1700 1075 Balance -163 625 240 Intake: IV 1300 Sodium Chloride 0.9% 1, 650 000 ml @ 125 mls/hr IV . Q8H SURAJ Rx#:[id number] Intake, IV Titration 1600 Amount Lactated Ringers 1,000 ml 1600 @ 100 mls/hr IV .Q10H SURAJ Rx#:[id number] Oral 237 240 Other 100 Output: Urine 1650 1075 Estimated Blood Loss 50 Other: Voiding Method Indwelling Catheter Indwelling Catheter Indwelling Catheter - Exam Head normocephalic Neck supple Lungs clear to auscultation bilaterally no wheezing or crackles Heart regular rate and rhythm S1-S2, no rub or gallop Abdomen is soft nontender nondistended positive bowel sounds no hepatosplenomegaly Extremities no edema Neuro alert and orientated to 3 - Labs CBC & Chem 7: 11/15/17 06:26 11/15/17 06:26 Labs: Abnormal Lab Results - Last 24 Hours (Table) 11/14/17 11/15/17 11/15/17 Range/Units 18:20 06:26 06:26 WBC 16.3 H (3.8-10.6) k/uL RBC 3.32 L (3.80-5.40) m/uL Hgb 11.2 L 9.7 L D (11.4-16.0) gm/dL Hct 30.6 L (34.0-46.0) % Neutrophils # 14.2 H (1.3-7.7) k/uL Lymphocytes # 0.8 L (1.0-4.8) k/uL INR (<1.2) Glucose 128 H (74-99) mg/dL Total Protein 5.3 L (6.3-8.2) g/dL Albumin 2.8 L (3.5-5.0) g/dL 11/15/17 Range/Units 10:56 WBC (3.8-10.6) k/uL RBC (3.80-5.40) m/uL Hgb (11.4-16.0) gm/dL Hct (34.0-46.0) % Neutrophils # (1.3-7.7) k/uL Lymphocytes # (1.0-4.8) k/uL INR 1.2 H (<1.2) Glucose (74-99) mg/dL Total Protein (6.3-8.2) g/dL Albumin (3.5-5.0) g/dL Assessment and Plan Plan: 1. Right hip fracture: Patient is stable postoperatively without any complication 2. Mechanical fall with hip fracture 3. Anemia possibly related to patient's fracture. Check iron studies. Continue to monitor CBC DVT prophylaxis subcu heparin
[2017-11-15] MEDS ORDERED: WARFARIN 5 MG TAB PO ONE (18:00)
[2017-11-15] MEDS: SENNOSIDES-DOCUSATE SODIUM 1 EACH TAB PO SCH (20:56)
[2017-11-16] MEDS: LACTATED RINGERS 1,000 ML IV SCH ×4 (01:26→21:12)
[2017-11-16] MEDS: SODIUM CHLORIDE 0.9% 1,000 ML IV SCH ×3 (01:27→17:50)
[2017-11-16] MEDS: HYDROcodone/APAP 5-325MG 1 EACH TAB PO PRN ×3 (05:01→21:15)
[2017-11-16 06:58] LABS: Basophils % (A) 0 %; Eosinophils % (A) 0 %; HCT 29.1 % (34.0-46.0); HGB 9.5 gm/dL (11.4-16.0); Lymphocytes % (A) 14 %; MCH 29.7 pg (25.0-35.0); MCHC 32.6 g/dL (31.0-37.0); MCV 91.1 fL (80.0-100.0); Mean Platelet Volume 7.3; Monocytes # (A) 0.6 k/uL (0-1.0); Monocytes % (A) 9 %; Neutrophils # (A) 5.1 k/uL (1.3-7.7); Neutrophils % (A) 74 %; Platelet Count 242 k/uL (150-450); RDW 13.9 % (11.5-15.5); WBC 6.8 k/uL (3.8-10.6)
[2017-11-16 07:05] LABS: INR 1.4 (<1.2); Prothrombin Time 12.7 sec (9.0-12.0)
[2017-11-16 07:14] LABS: ALT 28 U/L (9-52); AST 20 U/L (14-36); Albumin 2.9 g/dL (3.5-5.0); Alkaline Phosphatase 64 U/L (38-126); Anion Gap 7 mmol/L; Blood Urea Nitrogen 12 mg/dL (7-17); Calcium 8.4 mg/dL (8.4-10.2); Carbon Dioxide 31 mmol/L (22-30); Chloride 105 mmol/L (98-107); Glucose 125 mg/dL (74-99); Potassium 4.6 mmol/L (3.5-5.1); Sodium 143 mmol/L (137-145); Total Bilirubin 0.5 mg/dL (0.2-1.3); Total Protein 5.2 g/dL (6.3-8.2)
--- NOTE | 2017-11-16 12:40 | P.PN ---
Subjective Progress Note Date: 11/16/17 Principal diagnosis: Right IT FX Patient is seen at bedside this morning. She is postop day #2 from closed reduction internal fixation with IT nail for right hip fracture. She has pain at the surgical site as expected but denies any new complaints. She denies numbness, tingling or calf pain. Review of systems is negative for fever, chills, chest pain, shortness of breath or other Objective - Vital Signs Vital signs: Vital Signs Temp 98.1 F 11/16/17 06:54 Pulse 99 11/16/17 06:54 Resp 16 11/16/17 06:54 BP 127/72 11/16/17 06:54 Pulse Ox 94 L 11/16/17 06:54 Intake & Output 11/15/17 11/16/17 11/16/17 18:59 06:59 18:59 Intake Total 240 360 Output Total 900 350 Balance -660 10 Weight 56.699 kg Intake: Oral 240 360 Output: Urine 900 350 Other: Voiding Method Indwelling Catheter Bedside Commode Bedside Commode # Voids 1 # Bowel Movements 1 - Exam Inspection reveals a benign surgical wound. There is no active bleeding or drainage. Neurovascular status is intact throughout the lower extremity with motor and sensation fully intact. Calf is soft and nontender. 2+ dorsalis pedis pulse and less than 2 second cap refill is present - Constitutional General appearance: Present: no acute distress - Labs CBC & Chem 7: 11/16/17 06:33 11/16/17 06:33 Labs: Abnormal Lab Results - Last 24 Hours (Table) 11/16/17 11/16/17 11/16/17 Range/Units 06:33 06:33 06:33 RBC 3.20 L (3.80-5.40) m/uL Hgb 9.5 L (11.4-16.0) gm/dL Hct 29.1 L (34.0-46.0) % PT 12.7 H (9.0-12.0) sec INR 1.4 H (<1.2) Carbon Dioxide 31 H (22-30) mmol/L Glucose 125 H (74-99) mg/dL Total Protein 5.2 L (6.3-8.2) g/dL Albumin 2.9 L (3.5-5.0) g/dL Assessment and Plan (1) Closed right hip fracture Narrative/Plan: She will continue with routine postop orthopedic protocol including pain management, wound care, physical therapy, DVT prophylaxis and medical management. Expect that she will transfer to rehab in next few days. Current Visit: Yes Status: Acute Priority: Medium Code(s): S72.001A - FRACTURE OF UNSP PART OF NECK OF RIGHT FEMUR, INIT SNOMED Code(s): 373603037 Time with Patient: Less than 30
--- NOTE | 2017-11-16 13:25 | P.PN ---
Subjective Progress Note Date: 11/16/17 This is a 82-year-old female, patient of Dr. Huitron. She has no significant past medical history. Patient reports that she was outside working in her yard she tripped and fell over her hose landing on her right hip. She had difficulty getting up and had to yell out to a neighbor to help her. Patient reports being outside for about 7 hours before she was able to get assistance. X-ray did show evidence of a right femur fracture. She was admitted to the orthopedics. And is planning to have surgery tomorrow. Patient is medically stable for surgery. EKG normal sinus rhythm. Chest x-ray showing no acute pulmonary process. She did have a low-grade temp of 100.8 and white count of 11.2. This is likely related to her fracture or other temp could be elevated due to her being outside in the heat. Urinalysis is negative. There is no evidence of any acute infection. She denies any history of congestive heart failure, myocardial infarction, stroke, diabetes, renal disease. Patient denies any chest pain or shortness of breath. Denies any fever chills or sweats. Denies any nausea or vomiting. Denies any bowel movement changes or urinary symptoms. 11/14/2017 patient scheduled for surgery today. Pain is tolerable. Hemoglobin has dropped from 10.3-10.1. Patient denies any chest pain or shortness of breath. Denies any nausea or vomiting. Has Elias catheter in place. 11/15/2017 patient is alert and oriented 3 in no apparent distress she underwent surgery without complication, pain is well-controlled, there is no fever or chills no chest pain or shortness of breath no cough, she is tolerating diet well without nausea. There is no vomiting no abdominal pain and no urinary symptoms 11/16/2017 patient was seen and examined she is doing well she denies any fever or chills no headache or dizziness no chest pain no shortness of breath no cough no nausea or vomiting no abdominal pain no diarrhea and no urinary symptoms, she has been progressing well postoperatively, possible plans for transfer to rehab tomorrow Objective - Vital Signs Vital signs: Vital Signs Temp 98.1 F 11/16/17 06:54 Pulse 99 11/16/17 06:54 Resp 16 11/16/17 06:54 BP 127/72 11/16/17 06:54 Pulse Ox 94 L 11/16/17 06:54 Intake & Output 11/15/17 11/16/17 11/16/17 18:59 06:59 18:59 Intake Total 240 360 Output Total 900 350 Balance -660 10 Weight 56.699 kg Intake: Oral 240 360 Output: Urine 900 350 Other: Voiding Method Indwelling Catheter Bedside Commode Bedside Commode # Voids 1 # Bowel Movements 1 - Exam Head normocephalic Neck supple Lungs clear to auscultation bilaterally no wheezing or crackles Heart regular rate and rhythm S1-S2, no rub or gallop Abdomen is soft nontender nondistended positive bowel sounds no hepatosplenomegaly Extremities no edema Neuro alert and orientated to 3 - Labs CBC & Chem 7: 11/16/17 06:33 11/16/17 06:33 Labs: Abnormal Lab Results - Last 24 Hours (Table) 11/16/17 11/16/17 11/16/17 Range/Units 06:33 06:33 06:33 RBC 3.20 L (3.80-5.40) m/uL Hgb 9.5 L (11.4-16.0) gm/dL Hct 29.1 L (34.0-46.0) % PT 12.7 H (9.0-12.0) sec INR 1.4 H (<1.2) Carbon Dioxide 31 H (22-30) mmol/L Glucose 125 H (74-99) mg/dL Total Protein 5.2 L (6.3-8.2) g/dL Albumin 2.9 L (3.5-5.0) g/dL Assessment and Plan Plan: 1. Right hip fracture: Patient is stable postoperatively without any complication 2. Mechanical fall with hip fracture 3. Anemia possibly related to patient's fracture. Check iron studies. Continue to monitor CBC DVT prophylaxis subcu heparin
[2017-11-16 16:46] LABS: Basophils % (A) 0 %; Eosinophils % (A) 0 %; HCT 29.5 % (34.0-46.0); HGB 9.5 gm/dL (11.4-16.0); Lymphocytes # (A) 1.3 k/uL (1.0-4.8); Lymphocytes % (A) 17 %; MCH 29.7 pg (25.0-35.0); MCHC 32.3 g/dL (31.0-37.0); MCV 91.9 fL (80.0-100.0); Mean Platelet Volume 7.3; Monocytes # (A) 0.7 k/uL (0-1.0); Monocytes % (A) 9 %; Neutrophils # (A) 5.5 k/uL (1.3-7.7); Neutrophils % (A) 72 %; Platelet Count 260 k/uL (150-450); RBC 3.21 m/uL (3.80-5.40); RDW 13.8 % (11.5-15.5); WBC 7.6 k/uL (3.8-10.6)
[2017-11-16] MEDS ORDERED: WARFARIN 5 MG TAB PO ONE (18:00)
[2017-11-16] MEDS: SENNOSIDES-DOCUSATE SODIUM 1 EACH TAB PO SCH (21:12)
[2017-11-17] MEDS: SODIUM CHLORIDE 0.9% 1,000 ML IV SCH ×3 (02:14→16:51)
[2017-11-17] MEDS: LACTATED RINGERS 1,000 ML IV SCH ×2 (04:57→15:40)
[2017-11-17 07:00] LABS: Basophils % (A) 0 %; Eosinophils % (A) 1 %; HCT 30.3 % (34.0-46.0); HGB 9.8 gm/dL (11.4-16.0); Lymphocytes # (A) 1.3 k/uL (1.0-4.8); Lymphocytes % (A) 22 %; MCH 29.6 pg (25.0-35.0); MCHC 32.2 g/dL (31.0-37.0); MCV 91.9 fL (80.0-100.0); Mean Platelet Volume 7.1; Monocytes # (A) 0.5 k/uL (0-1.0); Monocytes % (A) 9 %; Neutrophils # (A) 3.9 k/uL (1.3-7.7); Neutrophils % (A) 66 %; Platelet Count 275 k/uL (150-450); RDW 13.9 % (11.5-15.5); WBC 5.9 k/uL (3.8-10.6)
[2017-11-17 07:05] LABS: INR 2.2 (<1.2); Prothrombin Time 19.5 sec (9.0-12.0)
[2017-11-17 07:12] LABS: ALT 27 U/L (9-52); AST 20 U/L (14-36); Albumin 3.1 g/dL (3.5-5.0); Alkaline Phosphatase 61 U/L (38-126); Anion Gap 11 mmol/L; Blood Urea Nitrogen 12 mg/dL (7-17); Calcium 8.2 mg/dL (8.4-10.2); Carbon Dioxide 29 mmol/L (22-30); Chloride 103 mmol/L (98-107); Glucose 109 mg/dL (74-99); Sodium 143 mmol/L (137-145); Total Bilirubin 0.6 mg/dL (0.2-1.3); Total Protein 5.4 g/dL (6.3-8.2)
--- NOTE | 2017-11-17 08:16 | P.DS ---
Providers Date of admission: 11/13/17 00:44 Expected date of discharge: 11/17/17 Attending physician: Rupert Portillo Consults: 11/13/17 00:45 Consult Physician Routine Consulting Provider: Francisca Manning Consult Reason/Comments: Medical clearance for right hip surgery Do you want consulting provider notified?: Yes Primary care physician: Valerie Huitron - Discharge Diagnosis(es) (1) Effusion, right knee Current Visit: Yes Status: Acute (2) Closed right hip fracture Current Visit: Yes Status: Acute Priority: Medium (3) Fall Current Visit: Yes Status: Acute Hospital Course: This is an 82-year-old female who is admitted to [facility] on 11/13/2017 after falling and sustaining injury to the right hip. On exam and x- ray in the emergency department he is found to have an intertrochanteric fracture of the right hip. He is admitted to our service for surgical intervention and care. Patient is taken to surgery for close reduction and insertion of intertrochanteric nail of the right hip. The procedure was performed without complication or sequelae. The patient is doing fairly well postoperatively. Vital signs and labs are stable on postoperative day #3. Patient is discharged to inpatient rehab in good condition. Please see med rec for accurate list of discharge medications. Patient Condition at Discharge: Stable Plan - Discharge Summary Discharge Rx Participant: Yes New Discharge Prescriptions: New HYDROcodone/APAP 5-325MG [Buckner 5-325] 1 - 2 each PO Q4-6H PRN #90 tab PRN Reason: Pain Sennosides-Docusate Sodium [Senokot-S] 1 tab PO BID #60 tablet Warfarin [Coumadin] 2.5 mg PO DAILY #30 tab No Action Multivit-Min/Iron/Folic/Lutein [Centrum Silver Women Tablet] 1 tab PO DAILY Calcium Carbonate/Vitamin D3 [Calcium 600-Vit D3 200 Tablet] 1 tab PO DAILY Discharge Medication List Calcium Carbonate/Vitamin D3 [Calcium 600-Vit D3 200 Tablet] 1 tab PO DAILY [History] Multivit-Min/Iron/Folic/Lutein [Centrum Silver Women Tablet] 1 tab PO DAILY [History] HYDROcodone/APAP 5-325MG [Buckner 5-325] 1 - 2 each PO Q4-6H PRN #90 tab 11/17/17 [Rx] Sennosides-Docusate Sodium [Senokot-S] 1 tab PO BID #60 tablet 11/17/17 [Rx] Warfarin [Coumadin] 2.5 mg PO DAILY #30 tab 11/17/17 [Rx] Follow up Appointment(s)/Referral(s): Ro Israel PAC [PHYSICIAN NETWORK/TELECOM ENGINEER] - 3 Weeks Valerie Huitron MD [Primary Care Provider] - 1-2 days Ambulatory/Diagnostic Orders: Prothrombin Time INR [LAB.AMB] Location: Determined By Patient Activity/Diet/Wound Care/Special Instructions: Toe-touch weightbearing with walker. May shower if no drainage from incision. Discharge Disposition: TRANSFER TO SNF/ECF
[2017-11-17 15:20] VITALS: BP 181/79; PULSE 111; RESP 15; TEMP 98
[2017-11-17] MEDS: HYDROcodone/APAP 5-325MG 1 EACH TAB PO PRN (16:44)
[2017-11-17] MEDS ORDERED: WARFARIN 5 MG TAB PO ONE (18:00)
== END 2017-11-17 16:51 | DRG 482 ==
LOC: EC 22:54 → 3SUR 11-13 00:44
PROVIDERS: ADMIT Orthopaedic Surgery; ATTEND Orthopaedic Surgery
PROC: 0QS636Z Reposition Right Upper Femur with Intramedullary Internal Fixation Device, Percutaneous Approach (ICD-10-PCS; principal; 2017-11-14 15:05)
DX: S72.141A Displaced intertrochanteric fracture of right femur, initial encounter for closed fracture (principal); W18.09XA Striking against other object with subsequent fall, initial encounter; Y92.096 Garden or yard of other non-institutional residence as the place of occurrence of the external cause; Z88.7 Allergy status to serum and vaccine; D64.9 Anemia, unspecified; E86.0 Dehydration
CPT/HCPCS: 36415; 51702; 71045; 72170; 73501; 80053; 81003; 82550; 82553; 82728; 83540; 83550; 83735; 83880; 84484; 85025; 85610; 85730; 86850; 86900; 86901; 93005; 96374; 99285

== ENCOUNTER → 2017-12-04 | Outpatient (CLI) | payer MEDICARE ==
--- NOTE | 2017-12-05 08:08 | US ---
EXAMINATION TYPE: US venous doppler duplex LE RT DATE OF EXAM: 12/04/2017 4:13 PM COMPARISON: NONE CLINICAL HISTORY: M79.661 Pain in Rt lower leg,. Pt having pain, swelling, bruising right leg post ri ght hip surgery SIDE PERFORMED: Right TECHNIQUE: The lower extremity deep venous system is examined utilizing real time linear array sonog jules with graded compression, doppler sonography and color-flow sonography. VESSELS IMAGED: External Iliac Vein (EIV) Common Femoral Vein Deep Femoral Vein Greater Saphenous Vein * Femoral Vein Popliteal Vein Small Saphenous Vein * Proximal Calf Veins (* superficial vessels) Right Leg: Negative for DVT Technologist Attempted to call office with results, no answer IMPRESSION: 1. Right lower extremity ultrasound negative for deep venous thrombosis
== END | disposition home or self-care (01) ==
LOC: RADUSWWP 15:53
PROVIDERS: ATTEND Orthopaedic Surgery
DX: Z48.89 Encounter for other specified surgical aftercare (principal); M79.661 Pain in right lower leg